=== PATIENT | female | born 2000 | race Caucasian/White ===

== ENCOUNTER 2021-01-05 17:17 | Emergency (ER) | payer BC, OTHER ==
[2021-01-05 18:29] LABS: HEMOGLOBIN 13.3 gm/dl (12.3-15.3); RED BLOOD COUNT 4.81 M/UL (4.00-5.10); WHITE BLOOD COUNT 6.7 K/UL (4.5-11.0)
[2021-01-05 18:53] LABS: BUN/CREATININE RATIO 13 (0-10)
== END 2021-01-05 21:35 | disposition home or self-care (01) ==
LOC: ER1 17:17
PROVIDERS: Emergency Medicine
DX: S06.0X9A Concussion with loss of consciousness of unspecified duration, initial encounter (principal); W22.8XXA Striking against or struck by other objects, initial encounter
CPT/HCPCS: 70450; 71045; 80053; 81001; 82550; 82553; 83874; 84484; 84703; 85025; 93005; 96372; 99284; J1885